=== PATIENT | female | born 1980 | race Caucasian/White ===

== ENCOUNTER 2017-08-21 16:44 | Emergency (ER) | payer OTHER ==
[2017-08-21] MEDS ORDERED: Albuterol HFA INHALER* 8 gm MDI INH ONE (17:32)
[2017-08-21] MEDS ORDERED: Dexamethasone IV* 4 MG/ML 1 ML (4 MG) IV SLOW PU ONE (17:32)
[2017-08-21] MEDS ORDERED: Metoclopramide IV* 5 MG/ML 2 ML VIAL IV SLOW PU ONE (17:32)
[2017-08-21] MEDS ORDERED: Dexamethasone IV* 10 MG in NS 0.9% 50 ML* 50 ML IVPB ONE (17:32)
[2017-08-21] MEDS ORDERED: NS 0.9% 1000 ML* 1,000 ML IV ONE (17:33)
--- NOTE | 2017-08-21 17:58 | RAD ---
INDICATION: Headache. COMPARISON: There is is made with a prior CT of the brain from August 24, 2013. TECHNIQUE: Contiguous axial sections of the brain were obtained from the skull base to the vertex without contrast. FINDINGS: The ventricles, cisterns and sulci are within normal limits. No significant focal abnormality or mass effect is seen. There is no evidence for hemorrhage. No significant focal osseous abnormality is seen. The visualized portion of the paranasal sinuses and mastoid air cells appear clear. IMPRESSION: NO EVIDENCE FOR ACUTE INTRACRANIAL ABNORMALITY.
[2017-08-21 18:10] LABS: Hematocrit 34 % (35-47); Hemoglobin 11.1 g/dl (12.0-16.0); Mean Corpuscular HGB Conc 33 g/dl (31-36); Mean Corpuscular Hemoglobin 24 pg (27-31); Mean Corpuscular Volume 74 fL (80-97); Mean Platelet Volume 7 um3 (7.4-10.4); Red Blood Count 4.62 10^6/ul (4.0-5.4); Red Cell Distribution Width 16 % (10.5-15); White Blood Count 9.4 10^3/ul (3.5-10.8)
[2017-08-21 18:12] LABS: Add Diff/Slide Review? Slide Review Added; Comments Flag Yes
[2017-08-21 18:21] LABS: Albumin 4.3 g/dL (3.2-5.2); BUN/Creatinine Ratio 13.2 (8-20); Calcium 9.8 mg/dL (8.6-10.3); EGFR African American 126.6 (>60); EGFR Non-African American 98.5 (>60); Globulin 3.5 g/dL (2-4); Potassium 3.9 mmol/L (3.5-5.0); Total Bilirubin 0.4 mg/dL (0.2-1.0); Total Protein 7.8 g/dL (6.4-8.9)
[2017-08-21] MEDS ORDERED: Magnesium Sulfate 2 GM IV* 2 GM/50 ML BAG IVPB ONE (18:27)
[2017-08-21] MEDS ORDERED: Ketorolac INJ* 30 MG/ML 1 ML VIAL IV PUSH ONE (18:27)
[2017-08-21 19:19] VITALS: BP 105/65
[2017-08-21 19:23] LABS: Urine Bilirubin Negative (Negative); Urine Glucose Negative (Negative); Urine Nitrite Negative (Negative)
--- NOTE | 2017-08-27 16:15 | ED ---
Kylie Navarro Thomas, scribed for Aaron Saldana MD on 08/21/17 at 1735 . Headache - HPI Summary HPI Summary: The pt is a 37 y/o F referred from Urgent Care and presenting to the ED c/o a gradual-onset headache that began today at 12:00. The pain is described as pressure. The pain is diffuse but is worse on the right side of her head. The pain has gradually worsened since onset. The pt rates the pain 6/10. The patient has treated the pain with ibuprofen, taken at Urgent Care. The patient also had a sudden-onset 30-minute episode of blurry vision earlier today that spontaneously resolved. Pt additionally c/o nausea, photophobia, and painful coughing (onset two weeks ago). Pt denies rhinorrhea, dental pain, ear pain, numbness, tingling, and changes to gait. She is currently menstruating. - History Of Current Complaint Chief Complaint: EDHeadache Stated Complaint: HEADACHE-SENT FROM [facility] Time Seen by Provider: 08/21/17 17:05 Hx Obtained From: Patient Hx Last Menstrual Period: 08/18/17 Onset/Duration: Gradual Onset, Started hours ago - onset today at 12:00, Still Present, Worse Since - gradual worsening Currently Pain Is: Current Pain Scale(0-10)= - 6 Timing: Constant Character: Pressure Location of Headache: Diffuse - worse on right side Aggravating Factor: Nothing Allevating Factors: Nothing Associated Signs And Symptoms: Nausea, Other (Noted In Comments) - Blurry vision , nausea, photophobia, painful coughing; NEGATIVE: rhinorrhea, dental pain, ear pain, numbness, tingling, changes to gait. - Allergies/Home Medications Allergies/Adverse Reactions: Allergies Allergy/AdvReac Type Severity Reaction Status Date / Time No Known Allergies Allergy Verified 08/21/17 14:00 PMH/Surg Hx/FS Hx/Imm Hx Previously Healthy: Yes Sensory History: Denies: Hx Legally Blind EENT History: Denies: Hx Deafness - Surgical History Surgery Procedure, Year, and Place: x 3; Infectious Disease History: No Infectious Disease History: Denies: Hx Clostridium Difficile, Hx Hepatitis, Hx Human Immunodeficiency Virus (HIV), Hx of Known/Suspected MRSA, Hx Shingles, Hx Tuberculosis, Hx Known/ Suspected VRE, Hx Known/Suspected VRSA, History Other Infectious Disease, Traveled Outside the [place] in Last 30 Days - Family History Known Family History: Negative: Respiratory Disease, Other - migraines - Social History Alcohol Use: Occasionally Substance Use Type: Reports: None Smoking Status (MU): Never Smoked Tobacco Review of Systems Negative: Fever, Chills Positive: Photophobia. Negative: Erythema - eyes Negative: Dental Pain, Sore Throat, Ear Ache, Nasal Discharge Negative: Chest Pain Positive: Cough - painful. Negative: Shortness Of Breath Positive: Nausea. Negative: Abdominal Pain, Vomiting Negative: dysuria, hematuria Negative: Myalgia, Edema - legs Negative: Rash Neurological: Other - NEGATIVE: dizziness, tingling, changes to gait Positive: Headache. Negative: Numbness All Other Systems Reviewed And Are Negative: Yes Physical Exam - Summary Physical Exam Summary: Constitutional: Well-developed, Well-nourished, Alert. (-) Distressed Skin: Warm, Dry HENT: Eyes: Conjunctiva normal Neck: Musculoskeletal ROM normal neck. (-) JVD, (-) Stridor, (-) Tracheal deviation Cardio: Rhythm regular, rate normal, Heart sounds normal; Intact distal pulses; The pedal pulses are 2+ and symmetric. Radial pulses are 2+ and symmetric. (-) Murmur Pulmonary/Chest wall: Effort normal. (-) Respiratory distress, (-) Wheezes, (-) Rales Abd: Soft. (-) Tenderness, ~(-) Distension, (-) Guarding, (-) Rebound Musculoskeletal: (-) Edema Lymph: (-) Cervical adenopathy Neuro: Alert, Oriented x3, Strength normal, Cranial nerves II-XII are grossly intact. (-) Dysmetria, (-) Nystagmus, (-) Ataxia by finger to nose testing, (-) Sensory deficit. Psych: Mood and affect Normal Triage Information Reviewed: Yes Vital Signs On Initial Exam: Initial Vitals Temp Pulse Resp BP Pulse Ox 98.3 F 56 18 106/73 100 08/21/17 16:46 08/21/17 16:46 08/21/17 16:46 08/21/17 16:46 08/21/17 16:46 Vital Signs Reviewed: Yes Diagnostics - Vital Signs Vital Signs Temp Pulse Resp BP Pulse Ox 08/21/17 16:46 98.3 F 56 18 106/73 100 - Laboratory Result Diagrams: 08/21/17 17:52 08/21/17 17:52 Lab Statement: Any lab studies that have been ordered have been reviewed, and results considered in the medical decision making process. - CT CT Brain CT Interpretation: No Acute Changes - NO EVIDENCE FOR ACUTE INTRACRANIAL ABNORMALITY. ED physician has reviewed this report and agrees. CT Interpretation Completed By: Radiologist Re-Evaluation - Re-Evaluation First Eval Re-Evaluation Time: 18:47 Change: Improved Comment: The patient has improved. She now complains of only 2/10. Headache Course/Dx - Course Assessment/Plan: The pt is a 37 y/o F referred from Urgent Care and presenting to the ED c/o a gradual-onset headache that began today at 12:00. The pain is described as pressure. The pain is diffuse but is worse on the right side of her head. The pain has gradually worsened since onset. The pt rates the pain 6/ 10. The patient has treated the pain with ibuprofen, taken at Urgent Care. The patient also had a sudden-onset 30-minute episode of blurry vision earlier today that spontaneously resolved. Pt additionally c/o nausea, photophobia, and painful coughing (onset two weeks ago). Pt denies rhinorrhea, dental pain, ear pain, numbness, tingling, and changes to gait. She is currently menstruating. In the ED course the patient was given Albuterol, Decadron, Toradol, Magnesium, Reglan, and IV fluids. Bloodwork shows Hgb 11.1, Hct 34. CT Brain shows no evidence for acute intracranial pathology. At re-evaluation, the patient's pain has improved. She is diagnosed with ocular migraine and cough. She will be given a prescription for Toradol and Reglan. She has cough suppressants at home. Patient is agreeable with this plan. - Diagnoses Provider Diagnoses: Ocular migraine, Cough Discharge - Discharge Plan Condition: Stable Disposition: HOME Prescriptions: Ketorolac TAB * [Toradol TAB *] 10 mg PO Q8H #12 tab Metoclopramide TAB* [Reglan TAB*] 10 mg PO Q8H #15 tab Patient Education Materials: Ocular Migraine (ED), Acute Cough (ED) Referrals: Darian Mcdowell MD [Primary Care Provider] - 3 Days Additional Instructions: Follow up with your primary care provider in 2-3 days. Return to the emergency department for any new or worsening symptoms. The documentation as recorded by the Klyie carter Thomas accurately reflects the service I personally performed and the decisions made by me, Aarno Saldana MD.
== END 2017-08-21 19:19 | disposition home or self-care (01) ==
LOC: ED 16:44
DX: G43.909 Migraine, unspecified, not intractable, without status migrainosus (principal); R05 Cough
CPT/HCPCS: 36415; 70450; 80053; 81003; 85025; 96374; 96375; 99283; A9270-GY; J1100; J1885; J2765

== ENCOUNTER 2017-08-24 15:13 | Emergency (ER) | payer OTHER ==
--- NOTE | 2017-08-24 16:17 | UC ---
Respiratory Complaint HPI - HPI Summary HPI Summary: 37 YO FEMALE WITH COUGH X 3 WEEKS SOMETIMES COUGH TO THE POINT OF VOMITING HAD MIGRAINE A FEW DAYS AGO SEEN IN ER SLAUGHTER MARKEDLY IMPROVED NO F/C - History of Current Complaint Chief Complaint: UCGeneralIllness Stated Complaint: COUGH,VOMITING Time Seen by Provider: 08/24/17 16:03 Hx Obtained From: Patient Hx Last Menstrual Period: 08/21/17 Onset/Duration: Gradual Onset Severity Initially: Mild Severity Currently: Moderate Pain Intensity: 7 - MAX PAIN WHEN SHE COUGHS Pain Scale Used: 0-10 Numeric Character: Cough: Nonproductive Aggravating Factors: Exertion, Deep Breaths Alleviating Factors: Nothing - Allergies/Home Medications Allergies/Adverse Reactions: Allergies Allergy/AdvReac Type Severity Reaction Status Date / Time No Known Allergies Allergy Verified 08/24/17 15:48 PMH/Surg Hx/FS Hx/Imm Hx Previously Healthy: Yes Respiratory History: Bronchitis, Pneumonia Neurological History: Migraine - Surgical History Surgical History: Yes Surgery Procedure, Year, and Place: x 3; - Family History Known Family History: Positive: Hypertension Negative: Respiratory Disease - Social History Alcohol Use: Occasionally Substance Use Type: None Smoking Status (MU): Never Smoked Tobacco - Immunization History Most Recent Influenza Vaccination: Not UTD Review of Systems Constitutional: Negative Skin: Negative Eyes: Negative ENT: Negative Respiratory: Cough Cardiovascular: Negative Gastrointestinal: Vomiting Genitourinary: Negative Motor: Negative Neurovascular: Negative Musculoskeletal: Negative Neurological: Negative Psychological: Negative Is Patient Immunocompromised?: No All Other Systems Reviewed And Are Negative: Yes Physical Exam Triage Information Reviewed: Yes Appearance: Well-Appearing, No Pain Distress, Well-Nourished Vital Signs: Initial Vital Signs Temp 98.8 F 08/24/17 15:43 Pulse 59 08/24/17 15:43 Resp 20 08/24/17 15:43 BP 118/52 08/24/17 15:43 Pulse Ox 100 08/24/17 15:43 Vital Signs Reviewed: Yes Eyes: Positive: Conjunctiva Clear ENT: Positive: Hearing grossly normal. Negative: Nasal congestion, TM bulging, Dental tenderness, Sinus tenderness, Uvula midline Neck: Positive: Supple, Nontender Respiratory: Positive: Lungs clear, Normal breath sounds, No respiratory distress, No accessory muscle use Cardiovascular: Positive: RRR, No Murmur Musculoskeletal: Positive: ROM Intact, No Edema Neurological: Positive: Alert UC Diagnostic Evaluation - Laboratory O2 Sat by Pulse Oximetry: 100 - NORMAL/NOT HYPOXIC - Radiology Xray Interpretation: No Acute Changes Radiology Interpretation Completed By: Radiologist Re-Evaluation - Re-Evaluation First Eval Re-Evaluation Time: 18:07 Change: Improved Respiratory Course/Dx - Differential Dx/Diagnosis Provider Diagnoses: acute bronchitis with bronchospasm Discharge - Discharge Plan Condition: Stable Disposition: HOME Referrals: Darian Mcdowell MD [Primary Care Provider] -
--- NOTE | 2017-08-24 17:04 | RAD ---
INDICATION: 3 weeks cough. 2 days central chest pain. COMPARISON: July 02, 2011 CT abdomen and December 13, 2009 chest radiograph. TECHNIQUE: Dual energy PA and routine lateral views of the chest were obtained. REPORT: Clear lungs and pleural spaces. Superior lateral to inferior medial linear density at the LEFT lung base is likely extrinsic. Negative for pneumothorax. The heart, pulmonary vasculature, and mediastinal contours are unremarkable. Unremarkable osseous structures and soft tissue contours. IMPRESSION: No evidence for acute intrathoracic disease.
[2017-08-24] MEDS ORDERED: Ipratropium 0.5MG/2.5ML NEB* 0.5 MG/2.5 ML NEB.SOLN INH ONE (17:09)
[2017-08-24] MEDS ORDERED: Albuterol 2.5 MG/3 ML NEB.SOL* (0.083%) INH ONE (17:09)
[2017-08-24 18:05] VITALS: BP 101/45
== END 2017-08-24 18:00 | disposition home or self-care (01) ==
LOC: UCEAST 15:13
DX: J20.9 Acute bronchitis, unspecified (principal)
CPT/HCPCS: 71020; 99212; G0463; J7644